=== PATIENT | female | born 1955 | race African-American/Black ===

== ENCOUNTER 2020-05-11 23:01 | Emergency (ER) | payer MEDICARE ==
[~2020-05-11] VITALS: Ht 175.3 cm; Wt 97.1 kg
[2020-05-11 23:21] LABS: ABSOLUTE NEUTROPHILS 3.7 thou/uL (1.4-8.2); BASOPHILS 0.7 % (0.0-2.0); EOSINOPHILS 1.9 % (0.0-3.0); HEMATOCRIT 35.2 % (37.0-47.0); HEMOGLOBIN 11.4 gm/dL (12.0-15.0); LYMPHOCYTES 34.5 % (24.0-44.0); MCHC 32.5 g/dL (28.0-37.0); MCV 89.4 fL (80.0-100.0); MONOCYTES 11.7 % (1.0-8.0); PLATELET COUNT 211 thou/uL (150-400); POLYS 51.2 % (36.0-66.0); RBC 3.94 mil/uL (4.20-5.00); RDW 14.8 % (10.5-14.5); WBC 7.3 thou/uL (4.0-11.0)
[2020-05-11 23:31] LABS: ANION GAP 12 mmol/L (7-16); BUN 27 mg/dL (7-18); CALCIUM 8.8 mg/dL (8.5-10.1); CHLORIDE 106 mmol/L (98-107); CO2 23 mmol/L (21-32); GLUCOSE 103 mg/dL (74-106); POTASSIUM 3.4 mmol/L (3.5-5.1); SODIUM 141 mmol/L (136-145)
[2020-05-11 23:35] LABS: SALICYLATE 13.9 mg/dL (2.8-20.0)
--- NOTE | 2020-05-12 08:50 | EKG ---
[facility] [place] [address] ELECTROCARDIOGRAM REPORT Name: PORSCHE DONALD Room #: [facility]#: [id number] Admission: 05/11/20 Attend Phys: Discharge: Date of : 57 Report #: [id number] THIS REPORT FOR: cc: [facility] - Clinic physician unknown [facility] - Clinic physician unknown Gagandeep Garsia MD [facility] ~ THIS REPORT FOR: //name// [facility] ED Test Date: 2020-05-12 Test Time: 00:16:28 Pat Name: PORSCHE DONALD Department: Room: Gender: F Manager Education: VLADISLAV : 1955 Requested By: Jimmie Muñoz Order Number: [id number] MD: Gagandeep Garsia Measurements Intervals [place] Rate: 75 P: 66 TX: 211 QRS: 41 QRSD: 107 T: 34 QT: 399 QTc: 446 Interpretive Statements Sinus rhythm No significant abnormality No previous ECG available for comparison Electronically Signed On 05-12-2020 8:50:13 CDT by Gagandeep Garsia [email or web address] <ELECTRONICALLY SIGNED> By: Gagandeep Garsia MD, FAC 05/12/20 0850 0016 0016 Gagandeep Garsia MD, FACC /EPI
[2020-05-12 12:03] VITALS: BP 131/86
== END 2020-05-12 12:04 | disposition home or self-care (01) ==
LOC: ER 23:01
PROVIDERS: Emergency Medicine
DX: R41.82 Altered mental status, unspecified (principal); F10.129 Alcohol abuse with intoxication, unspecified; Y90.8 Blood alcohol level of 240 mg/100 ml or more